=== PATIENT | male | born 1990 | race American Indian/Alaskan Native ===

== ENCOUNTER 2017-03-16 15:10 | Emergency (ER) | payer OTHER ==
[2017-03-16 16:14] VITALS: BP 150/104
== END 2017-03-16 18:27 | disposition left against medical advice (07) ==
LOC: ED 15:10
DX: G43.909 Migraine, unspecified, not intractable, without status migrainosus (principal); Z53.21 Procedure and treatment not carried out due to patient leaving prior to being seen by health care provider